=== PATIENT | female | born 1955 | race Caucasian/White ===

== ENCOUNTER → 2018-06-21 | Outpatient (CLI) | payer MEDICARE ==
[~2018-06-21] MED LIST: ALBU2.5V4 INH; ALPR0.25 PO; AMLO5TAB2 PO; ASCO100083 PO; ASP325TEC PO; ATOR40TA70 PO; BPR150TCR PO; CALCIUM/MAG/ZINC PO; CHOL50003 PO; CYCL10TA9 PO; EPHE1TAB PO; ESTR0.5T3 PO; FISH12002 PO; FLUT1DIS26 IH; FURO40TA PO; GLUC1TAB9 PO; HYDR-34 PO; LORA10TA76 PO; LVF500T PO; MELO-195 PO; MULT-974 PO; POTA-51 PO; SUPER B PLUS PO
== END ==
LOC: CARD 12:31
PROVIDERS: ATTEND Internal Medicine Cardiovascular Disease
DX: I35.8 Other nonrheumatic aortic valve disorders (principal); R07.9 Chest pain, unspecified; I25.10 Atherosclerotic heart disease of native coronary artery without angina pectoris; R06.00 Dyspnea, unspecified; R55 Syncope and collapse; F41.9 Anxiety disorder, unspecified
CPT/HCPCS: 93306

== ENCOUNTER → 2018-10-24 | Outpatient (CLI) | payer MEDICARE ==
--- NOTE | 2018-10-24 09:43 | Diagnostic Imaging Report ---
PROCEDURE: US Renal Bilateral. TECHNIQUE: Multiple real-time grayscale images were obtained over the kidneys in various projections bilaterally. INDICATION: Chronic kidney disease stage IV. FINDINGS: Right kidney measures 8.9 x 3.7 x 4.8 cm and the left kidney measures 8.3 x 4.7 x 5.0 cm. Cortical thickness and echogenicity is normal. No calculi are seen. There is no hydronephrosis. No renal mass is identified. Urinary bladder demonstrates bilateral ureteral jets. IMPRESSION: Unremarkable renal ultrasound. Dictated by: Dictated on workstation # [id number]
== END ==
LOC: RAD 08:57
PROVIDERS: ATTEND Internal Medicine
DX: N18.4 Chronic kidney disease, stage 4 (severe) (principal)
CPT/HCPCS: 76770

== ENCOUNTER → 2019-12-13 | Outpatient (CLI) | payer MEDICARE ==
[~2019-12-13] VITALS: Ht 152 cm; Wt 61.0 kg
[~2019-12-13] MED LIST changes: +CATHETER FLUSH 10 ML SYR IV PRN; +REGADENOSON 0.4 MG/5 ML SYR (LEXISCAN) IV ONE
[2019-12-13 14:50] VITALS: BP 104/55
--- NOTE | 2019-12-13 14:51 | Cardiology Stress Test Report ---
Stress Test Report Date of Procedure/Referring: Date of Procedure: Dec 13, 2019 PCP Danyell Harley Admitting Physician Dayton Levi DO Indications: Coronary artery disease Baseline Heart Rate: 66 Baseline Blood Pressure: Blood Pressure Systolic: 104 Blood Pressure Diastolic: 55 Baseline EKG: Baseline EKG: ventricular paced rhythm Summary After explaining the procedure to the patient, she signed a consent and then brought to the stress nuclear laboratory. Patient received 0.4 mg Lexiscan for stress test, ECG, heart rate and blood pressure were monitored continuously. Resting and stress dose of radio tracer were injected, imaging was acquired and reviewed in short axis, horizontal long axis and vertical long axis views. TID: 1.04 SSS: 4 SDS: 4 EF: 82 1. Patient tolerated Lexiscan well 2. Baseline ventricular paced rhythm 3. Breast attenuation with fixed defect in the apex, no significant ischemia or infarction 4. Normal left ventricular size, hyperactive, EF 82 percent BRODY URIOSTEGUI MD Dec 13, 2019 14:50
== END ==
LOC: CARD 11:30
PROVIDERS: ATTEND Physician Assistant
DX: I25.10 Atherosclerotic heart disease of native coronary artery without angina pectoris (principal); I44.2 Atrioventricular block, complete; I10 Essential (primary) hypertension; E78.2 Mixed hyperlipidemia
CPT/HCPCS: 78452; 93017; A9502

== ENCOUNTER 2021-08-05 14:00 | Emergency (ER) | payer MEDICARE ==
[~2021-08-05] VITALS: Ht 152 cm; Wt 53.0 kg
[~2021-08-05 14:00] MED LIST changes: -CATHETER FLUSH 10 ML SYR IV PRN; -REGADENOSON 0.4 MG/5 ML SYR (LEXISCAN) IV ONE
[2021-08-05 15:04] VITALS: BP 104/71
--- NOTE | 2021-08-05 15:49 | Diagnostic Imaging Report ---
INDICATION: pain COMPARISON: None. FINDINGS: Multiple radiographic views of the left femur were obtained and show no fractures, dislocations, or other acute bony abnormalities. Joint spaces are well maintained throughout. The soft tissues appear unremarkable. No radiopaque foreign bodies are identified. IMPRESSION: Unremarkable radiographic exam of the left femur. Dictated by: Dictated on workstation # [id number]
--- NOTE | 2021-08-05 15:51 | Diagnostic Imaging Report ---
INDICATION: Fall. Pain. Injury. Swelling. Bruising. COMPARISON: None. FINDINGS: Frontal and lateral radiographic views of the left tibia and fibula were obtained. There is a fracture through the base of the medial malleolus of the distal tibia. There is no significant displacement of the fracture fragments. Note is also made of a comminuted fracture of the distal fibula. There is slight displacement of the fracture fragments. The tibiotalar joint space is maintained. No unexpected radiopaque foreign bodies are seen. There is moderate overlying soft tissue swelling. IMPRESSION: Acute fractures of the distal left tibia and fibula as above. Dictated by: Dictated on workstation # [id number]
--- NOTE | 2021-08-05 15:52 | Diagnostic Imaging Report ---
INDICATION: Recent fall. Left foot, ankle, and leg pain. Swelling. Bruising. COMPARISON: Tib-fib exam from same day. FINDINGS: Multiple radiographic views of the left foot were obtained. There is acute transverse oriented fracture through the base of the medial malleolus. Acute fracture of the distal fibula is also noted, but not as well visualized when compared to tib-fib exam from same day. Otherwise, left foot is intact. Joint spaces are maintained. No unexpected radiopaque foreign bodies are seen. There is moderate soft tissue swelling. IMPRESSION: 1. Acute fractures of the distal left tibia and fibula. These are better visualized on dedicated tib-fib exam from same day. Dictated by: Dictated on workstation # [id number]
--- NOTE | 2021-08-05 16:22 | ED Lower Extremity ---
General Chief Complaint: Lower Extremity Stated Complaint: L FOOT PAIN Nursing Triage Note: Pt fell 5 days ago. Pt c/o L foot, ankle, and leg pain. Pt reports swelling is much improved. Bruising noted to LLE upon exam. Pt able to ambulate with cane to triage room. History of Present Illness Date Seen by Provider: Aug 05, 2021 Time Seen by Provider: 16:10 Initial Comments PT ARRIVED BY PRIVATE VEHICLE WITH CHIEF COMPLAINT OF LEFT FOOT PAIN. FAMILY MEMBER STATED THAT LAST WEDNESDAY SHE STEPPED AWAY AND CAME BACK TO THE PATIENT SAYING SHE HAD FALLEN AND INJURED HER left FOOT. SHE STATED SHE WAS JUST STANDING AND FELL. THERE WAS NO OBVIOUS SWELLING INITIALLY, BUT AFTER APPLYING ICE THE PATIENT STARTED TO HAVE BRUISING AND SWELLING around the ankle . PT COMPLAINS OF PAIN BEING LOCALIZED AT THE LATERAL ANKLE JOINT.DENIED TAKING IBUPROFEN OR TYLENOL AT HOME, BECAUSE THEY DO NOT HAVE THAT AT HOME THEY STATED. PT HAS BEEN WALKING ON IT ONLY WHEN NEEDED. Location Injury Occurred: LEFT ANKLE Onset: last week (08/01/2021) Pain/Injury Location: left foot, left ankle Method of Injury: fell Modifying Factors: Improves With Cold Therapy; Worse With Movement Allergies and Home Medications Allergies Coded Allergies: Penicillin G (Verified Allergy, Unknown, 11/11/05) Patient Home Medication List Home Medication List Reviewed: Yes Albuterol Sulfate (Albuterol Sulfate) 0.83 Mg/Ml Solution, 0.083 MG INH BID PRN for SHORTNESS OF BREATH, (Reported) Entered as Reported by: JESSICA JOSHUA on 04/26/14 1132 Alprazolam (Xanax) 0.25 Mg Tablet, 0.25 MG PO Q8H PRN for ANXIETY, (Reported) Entered as Reported by: JESSICA JOSHUA on 04/26/14 1131 Amlodipine Besylate (Amlodipine Besylate) 5 Mg Tablet, 5 MG PO DAILY, (Reported) Entered as Reported by: JESSICA JOSHUA on 04/26/14 1131 Ascorbic Acid (Vitamin C) 1,000 Mg Tab.chew, 1,000 MG PO DAILY, (Reported) Entered as Reported by: JESSICA JOSHUA on 04/26/14 1131 Aspirin (Aspirin Ec 325 Mg) 325 Mg Tabec, 325 MG PO DAILY, (Reported) Entered as Reported by: JESSICA JOSHUA on 04/26/14 1139 Atorvastatin Calcium (Atorvastatin Calcium) 40 Mg Tablet, 40 MG PO HS, (Reported) Entered as Reported by: JESSICA JOSHUA on 04/26/14 113 Bupropion Hcl (Wellbutrin Sr) 150 Mg Tablet, 150 MG PO BID, (Reported) Entered as Reported by: JESSICA JOSHUA on 04/26/14 113 Cholecalciferol (Vitamin D) 5,000 Unit Tablet, 20,000 UNIT PO DAILY, (Reported) Entered as Reported by: JESSICA JOSHUA on 04/26/14 113 Cyclobenzaprine Hcl (Cyclobenzaprine Hcl) 10 Mg Tablet, 10 MG PO TID PRN for MUSCLE SPASMS, (Reported) Entered as Reported by: JESSICA JOSHUA on 04/26/14 113 Ephedrine Sulfate/Guaifenesin (Bronkaid Dual Action Caplet) 1 Each Tablet, 1 TAB PO QID PRN for SHORTNESS OF BREATH, (Reported) Entered as Reported by: JESSICA JOSHUA on 04/26/14 113 Estradiol (Estrace) 0.5 Mg Tablet, 0.5 MG PO 1600, (Reported) Entered as Reported by: JESSICA JOSHUA on 04/26/14 113 Fish Oil/Borage/Flax/Om3,6,9#1 ([place] 3-6-9 1,200 mg Softgel) 1,200 Mg Capsule, 1,200 MG PO 1600, (Reported) Entered as Reported by: JESSICA JOSHUA on 04/26/14 113 Fluticasone/Salmeterol (Advair 250 Mcg/50 Mcg 60's) 1 Disk Inhp, 1 PUFF IH BID, (Reported) Entered as Reported by: JESSICA JOSHUA on 04/26/14 113 Furosemide (Lasix) 40 Mg Tablet, 40 MG PO DAILY, (Reported) Entered as Reported by: JESSICA JOSHUA on 04/26/14 113 Glucosamine Hcl/Msm (Sm Glucosamine & Msm Tablet) 1 Each Tablet, 1 TAB PO DAILY, (Reported) Entered as Reported by: JESSICA JOSHUA on 04/26/14 113 Hydrocodone Bit/Acetaminophen (Lortab 7.5 Mg Tablet) 1 Ea Tablet, 1 TAB PO QID, (Reported) Entered as Reported by: JESSICA JOSHUA on 04/26/14 113 Levofloxacin (Levaquin Tablet) 500 Mg Tab, 500 MG PO DAILY@11 Prescribed by: BRODY URIOSTEGUI on 04/27/14 0742 Loratadine (Claritin) 10 Mg Tablet, 10 MG PO DAILY, (Reported) Entered as Reported by: JESSICA JOSHUA on 04/26/14 113 Meloxicam (Meloxicam) 15 Mg Tablet, 15 MG PO 1600, (Reported) Entered as Reported by: JESSICA JOSHUA on 04/26/14 113 Multivitamin (Multi Vitamin Daily) 1 Each Tablet, 1 TAB PO DAILY, (Reported) Entered as Reported by: JESSICA JOSHUA on 04/26/14 113 Potassium Chloride (Potassium Chloride) 20 Meq Tablet.er, 20 MEQ PO DAILY, (Reported) Entered as Reported by: JESSICA JOSHUA on 04/26/14 113 [Calcium/Mag/Zinc] , 1 TAB PO DAILY, (Reported) Entered as Reported by: JESSICA JOSHUA on 04/26/141130 [Super B Plus] , 1 TAB PO DAILY, (Reported) Entered as Reported by: JESSICA JOSHUA on 04/26/141130 Review of Systems Constitutional: no symptoms reported, see HPI EENTM: see HPI, no symptoms reported Respiratory: no symptoms reported, see HPI Cardiovascular: no symptoms reported, see HPI Gastrointestinal: no symptoms reported, see HPI Genitourinary: no symptoms reported, see HPI Musculoskeletal: see HPI, joint pain (ANKLE PAIN (LEFT)) Skin: see HPI, change in color (ECCHYMOSIS) Psychiatric/Neurological: No Symptoms Reported, See HPI Past Bguvzoj-Zvghiw-Itbasu Hx Patient Social History Tobacco Use?: No Use of E-Cig and/or Vaping dev: No Substance use?: No Alcohol Use?: No Immunizations Up To Date Influenza Vaccine Up-to-Date: No; Not Current First/Initial COVID19 Vaccinat: 08/06/20 Second COVID19 Vaccination Willem: 09/03/20 COVID19 Vaccine [employer]: BRITT Past Medical History Chronic Bronchitis Reproductive Disorders: No Female Reproductive Disorders: Endometriosis Sexually Transmitted Disease: No HIV/AIDS: No Degenerate Disk Disease, Arthritis Loss of Vision: Bilateral Hearing Impairment: Denies Anxiety Adverse Reaction/Blood Tranf: No Family Medical History Cardiovascular disease 19 FATHER 19 MOTHER Diabetes mellitus 19 FATHER G8 BROTHER Hypercholesterolemia G8 BROTHER G8 BROTHER Physical Exam Vital Signs Vital Signs - First Documented 08/05/21 15:04 Temp 36.5 Pulse 73 Resp 18 B/P (MAP) 104/71 (82) Pulse Ox 97 O2 Delivery Room Air Capillary Refill : Less Than 3 Seconds Height, Weight, BMI Height: 5'9.00" Weight: 116lbs. 0.0oz. [id number]; 22.00 BMI Method: General Appearance: WD/WN, no apparent distress Neck: non-tender, full range of motion, normal inspection Cardiovascular: normal peripheral pulses, regular rate, rhythm Respiratory: no respiratory distress, no accessory muscle use Hips: bilateral hip normal range of motion Legs: bilateral leg normal range of motion Knees: bilateral knee normal range of motion Ankles: left ankle ecchymosis, left ankle pain, left ankle swelling Feet: left foot ecchymosis, left foot pain, left foot swelling Neurologic/Tendon: normal sensation, responds to pain Neurologic/Psychiatric: alert, oriented x 3 Skin: warm/dry, ecchymosis PT HAS LIMITED DORSIFLEXION AND LIMITED PLANTARFLEXION. PT IS ABLE TO BARELY WIGGLE HER TOES. PT LOCALIZES HER PAIN TO HER LATERAL ANKLE. PT HAS SWELLING AND ECCHYMOSIS about the lateral aspect of the foot and distal fibula. She has brisk capillary refill and normal sensation of the toes. Progress/Results/Core Measures Results/Orders My Orders Orders - AGUSTINA CLEARY APRN Foot, Left, 3 Views (08/05/21 15:19) Tibia/Fibula, Left, 2 Views (08/05/21 15:19) Femur, Left, 2 Views (08/05/21 15:19) Hydrocodone/Apap 5/325 Tablet (Lortab 5 (08/05/21 16:30) Medications Given in ED Current Medications Medications Dose Ordered Sig/Kane Route Start Time Stop Time Status Last Admin Dose Admin Acetaminophen/ Hydrocodone Bitart 1 ea ONCE ONCE PO 08/05/21 16:30 08/05/21 16:31 DC 08/05/21 16:33 1 EA Vital Signs/I&O 08/05/21 15:04 Temp 36.5 Pulse 73 Resp 18 B/P (MAP) 104/71 (82) Pulse Ox 97 O2 Delivery Room Air Blood Pressure Mean: 82 Departure Communication (Admissions) Plain films show bimalleolar left ankle fracture. I will place her in a posterior short leg and stirrup splint using 3 inch Ortho-Glass. Have her follow-up with orthopedics. I will provide her with crutches to be nonweightbearing. Impression Primary Impression: Bimalleolar fracture of left ankle Disposition: HOME, SELF-CARE Condition: Stable Departure-Patient Inst. Decision time for Depature: 16:45 Referrals: LOGAN ORTEGA MD, TERRY D MD SULLIVAN, WILLIAM J DO (PCP/Family) Primary Care Physician MARCK PALACIO MD Patient Instructions: Ankle Fracture ED Add. Discharge Instructions: 1. Elevate the ankle is much as possible. Do not put any weight on the left foot. Use the crutches when walking. Call the orthopedic surgeon of your choosing to make an appointment to be seen for follow-up within the next 1 to 2 weeks. Keep the splint on clean and dry this means placing a trash bag over the leg and keeping it around the knee to keep the splint material dry. Return to ER for any concerns. Pain medication as directed. All discharge instructions reviewed with patient and/or family. Voiced understanding. Scripts Hydrocodone/Acetaminophen (Hydrocodone-Acetamin 5-325 mg) 5 Mg-325 Mg Tablet 1 TAB PO Q4H PRN for PAIN-MODERATE (5-7), #20 TAB Prov: AGUSTINA CLEARY APRN 08/05/21 AGUSTINA CLEARY APRN Aug 05, 2021 16:22
[2021-08-05] MEDS ORDERED: HYDROcodone/APAP 5 MG/325 MG (LORTAB) TAB PO ONE (16:30)
[2021-08-05] MEDS ORDERED: ACHD5005 PO (16:47)
== END 2021-08-05 17:04 | disposition home or self-care (01) ==
LOC: EDUNIT# 14:00 → ER 14:02
DX: S82.842A Displaced bimalleolar fracture of left lower leg, initial encounter for closed fracture (principal); S90.32XA Contusion of left foot, initial encounter; W18.30XA Fall on same level, unspecified, initial encounter
CPT/HCPCS: 29515; 73552; 73590; 73630